=== PATIENT | female | born 1980 | race Caucasian/White ===

== ENCOUNTER → 2017-12-24 | Outpatient (CLI) | payer OTHER | LOC: LAB EV 18:51 → LAB SHORT 18:51 | DX: N39.0 Urinary tract infection, site not specified (principal) | CPT/HCPCS: 87086 ==

== ENCOUNTER → 2018-01-27 | Outpatient (CLI) | payer OTHER | END | disposition home or self-care (01) | LOC: LAB SHORT 18:37 → LAB EV 18:37 | DX: N39.0 Urinary tract infection, site not specified (principal) | CPT/HCPCS: 87086 ==

== ENCOUNTER → 2018-06-17 | Outpatient (CLI) | payer OTHER | END | disposition home or self-care (01) | LOC: LAB EV 08:37 → LAB SHORT 08:37 | DX: N39.0 Urinary tract infection, site not specified (principal) | CPT/HCPCS: 87086 ==

== ENCOUNTER → 2018-07-21 | Outpatient (CLI) | payer OTHER | END | disposition home or self-care (01) | LOC: LAB EV 17:53 → LAB SHORT 17:53 | DX: N39.0 Urinary tract infection, site not specified (principal) | CPT/HCPCS: 87077; 87086; 87186 ==

== ENCOUNTER → 2018-10-13 | Outpatient (CLI) | payer OTHER | END | disposition home or self-care (01) | LOC: LAB SHORT 17:55 → LAB EV 17:55 | DX: N39.0 Urinary tract infection, site not specified (principal) | CPT/HCPCS: 87077; 87086; 87186 ==

== ENCOUNTER → 2018-11-05 | Outpatient (CLI) | payer OTHER | END | disposition home or self-care (01) | LOC: LAB SHORT 09:32 → LAB EV 09:32 | DX: N39.0 Urinary tract infection, site not specified (principal) | CPT/HCPCS: 87086 ==

== ENCOUNTER → 2018-12-04 | Outpatient (CLI) | payer OTHER ==
[2018-12-08 15:07] LABS: HPV 16 Negative (Negative); HPV 18 Positive (Negative); HPV OTHER HR TYPES Positive (Negative)
== END | disposition home or self-care (01) ==
LOC: LAB SHORT 07:40 → LAB 07:40
PROVIDERS: Family Medicine
DX: Z12.4 Encounter for screening for malignant neoplasm of cervix (principal); R30.0 Dysuria
CPT/HCPCS: 87077; 87086; 87186; 87624; 87625; G0123

== ENCOUNTER → 2019-01-16 | Outpatient (CLI) | payer OTHER ==
[2019-01-17 10:19] LABS: Candida species (DNA Probe) Positive (NEGATIVE); G. vaginalis (DNA Probe) Negative (NEGATIVE); T. vaginalis (DNA Probe) Negative (NEGATIVE)
== END | disposition home or self-care (01) ==
LOC: LAB SHORT 11:30 → LAB UCHC 11:30
PROVIDERS: Internal Medicine
DX: N76.0 Acute vaginitis (principal)
CPT/HCPCS: 87480; 87510; 87660

== ENCOUNTER → 2019-01-26 | Outpatient (CLI) | payer OTHER | END | disposition home or self-care (01) | LOC: LAB SHORT 18:41 → LAB EV 18:41 | DX: N39.0 Urinary tract infection, site not specified (principal) | CPT/HCPCS: 87077; 87086; 87186 ==

== ENCOUNTER → 2019-07-10 | Outpatient (CLI) | payer OTHER | END | disposition home or self-care (01) | LOC: LAB 18:18 → LAB SHORT 18:18 | DX: N39.0 Urinary tract infection, site not specified (principal) | CPT/HCPCS: 87077; 87086; 87186 ==

== ENCOUNTER → 2019-08-06 | Outpatient (CLI) | payer OTHER ==
[2019-08-07 11:48] LABS: Candida species (DNA Probe) Positive (NEGATIVE); G. vaginalis (DNA Probe) Negative (NEGATIVE); T. vaginalis (DNA Probe) Negative (NEGATIVE)
== END | disposition home or self-care (01) ==
LOC: LAB SHORT 09:00 → LAB 09:00
PROVIDERS: Internal Medicine
DX: N89.8 Other specified noninflammatory disorders of vagina (principal)
CPT/HCPCS: 87480; 87510; 87660

== ENCOUNTER → 2019-11-20 | Outpatient (CLI) | payer OTHER | END | disposition home or self-care (01) | LOC: LAB 14:37 → LAB SHORT 14:37 | DX: N39.0 Urinary tract infection, site not specified (principal) | CPT/HCPCS: 87086 ==

== ENCOUNTER → 2020-06-23 | Outpatient (CLI) | payer OTHER ==
[2020-06-24 09:30] LABS: Candida species (DNA Probe) Positive (NEGATIVE); G. vaginalis (DNA Probe) Positive (NEGATIVE); T. vaginalis (DNA Probe) Negative (NEGATIVE)
[2020-06-25 04:08] LABS: CHLAMYDIA TRACHOMATIS, NAA Negative (Negative); HPV 16 Negative (Negative); HPV 18 Negative (Negative); HPV OTHER HR TYPES Positive (Negative)
== END | disposition home or self-care (01) ==
LOC: LAB SHORT 10:45 → LAB 10:45
PROVIDERS: Internal Medicine
DX: Z01.419 Encounter for gynecological examination (general) (routine) without abnormal findings (principal); N89.8 Other specified noninflammatory disorders of vagina
CPT/HCPCS: 87480; 87491; 87510; 87591; 87624; 87660; G0123

== ENCOUNTER → 2020-08-16 | Outpatient (CLI) | payer BC | END | disposition home or self-care (01) | LOC: LAB 15:04 → LAB SHORT 15:04 | DX: N87.9 Dysplasia of cervix uteri, unspecified (principal) | CPT/HCPCS: 88305 ==

== ENCOUNTER → 2021-01-16 | Outpatient (CLI) | payer BC ==
[2021-01-17 10:16] LABS: Candida species (DNA Probe) Negative (NEGATIVE); G. vaginalis (DNA Probe) Positive (NEGATIVE); T. vaginalis (DNA Probe) Positive (NEGATIVE)
[2021-01-18 04:09] LABS: CHLAMYDIA TRACHOMATIS, NAA Negative (Negative)
== END | disposition home or self-care (01) ==
LOC: LAB 14:29 → LAB SHORT 14:29
PROVIDERS: Internal Medicine; Nurse Practitioner Family
DX: N89.8 Other specified noninflammatory disorders of vagina (principal)
CPT/HCPCS: 87480; 87491; 87510; 87591; 87660

== ENCOUNTER 2021-03-02 21:12 | Emergency (ER) | payer SELFPAY ==
[~2021-03-02] VITALS: Ht 162.6 cm; Wt 72.6 kg
== END 2021-03-02 21:51 | disposition left against medical advice (07) ==
LOC: ER 21:12
DX: R20.0 Anesthesia of skin (principal); Z53.21 Procedure and treatment not carried out due to patient leaving prior to being seen by health care provider
CPT/HCPCS: 99281

== ENCOUNTER → 2021-05-01 | Outpatient (CLI) | payer SELFPAY | END | disposition home or self-care (01) | LOC: LAB SHORT 18:17 | DX: N39.0 Urinary tract infection, site not specified (principal) | CPT/HCPCS: 87077; 87086; 87186 ==

== ENCOUNTER → 2021-05-04 | Outpatient (CLI) | payer SELFPAY | END | disposition home or self-care (01) | LOC: LAB SHORT 18:57 | DX: J02.9 Acute pharyngitis, unspecified (principal) | CPT/HCPCS: 87081 ==

== ENCOUNTER 2022-07-05 05:46 | Day surgery (SDC) | payer OTHER ==
[2022-07-04 08:25] LABS: Anion Gap 2 mmol/L (6-16); Beta HCG, Quantitative, Serum <1 mIU/mL (0-3); Blood Urea Nitrogen 12 mg/dL (8-24); CO2, Blood 27 mmol/L (21-32); Calcium, Blood 8.6 mg/dL (8.5-10.1); Chloride, Blood 110 mmol/L (98-108); Creatinine, Blood 0.86 mg/dL (0.40-1.00); Glomerular Filtration Rate 86 (60-); Glucose, Blood 107 mg/dL (70-99); Potassium, Blood 3.9 mmol/L (3.5-5.5); Sodium, Blood 139 mmol/L (136-145)
[2022-07-04 09:32] LABS: BASOPHILS ABSOLUTE AUTO 0.04 K/mm3 (0.00-0.23); BASOPHILS PERCENT AUTO 0 % (0-2); EOSINOPHILS ABSOLUTE AUTO 0.28 K/mm3 (0.00-0.68); EOSINOPHILS PERCENT AUTO 3 % (0-6); Hematocrit 39.7 % (33.0-51.0); Hemoglobin 13.7 g/dL (11.5-16.0); IMMATURE GRAN ABSOLUTE AUTO 0.03 K/mm3 (0.00-0.10); IMMATURE GRAN PERCENT AUTO 0 % (0-1); LYMPHOCYTES ABSOLUTE AUTO 3.03 K/mm3 (0.84-5.20); LYMPHOCYTES PERCENT AUTO 33 % (21-46); MONOCYTES ABSOLUTE AUTO 0.88 K/mm3 (0.16-1.47); MONOCYTES PERCENT AUTO 10 % (4-13); Mean Corpuscular HGB 28.9 pg (26.0-34.0); Mean Corpuscular HGB Conc 34.5 g/dL (31.5-36.5); Mean Corpuscular Volume 84 fL (80-100); Mean Platelet Volume 10.2 fL (9.1-12.4); NEUTROPHILS ABSOLUTE AUTO 4.84 K/mm3 (1.96-9.15); NEUTROPHILS PERCENT AUTO 53 % (41-73); Platelet Count 287 K/mm3 (150-400); RDW Coefficient Variation 13.1 % (11.7-14.2); Red Blood Cell Count 4.74 M/mm3 (3.80-5.20)
[~2022-07-05] VITALS: Ht 162.6 cm; Wt 90.4 kg
[2022-07-05] VITALS (16 sets, daily range): BP systolic 107–130; BP diastolic 68–98
[~2022-07-05 05:46] MED LIST: Budeprion Xl300 MG PO; Buspirone HCl15 MG PO; CITALOPRAM HBR20 M9 PO; LOSA25 PO; MELATONIN5 M1 PO; VITAMIN D5000 UNIT PO
--- NOTE | 2022-07-05 07:25 | NUR ---
Patient up to Ambulate independently. Gait steady. Surgical site prepped with 2% Chlorhexidine cloth wipe. History, Chart, Medications and Allergies reviewed before start of procedure. Lungs clear T/O to Auscultation. Patient confirms NPO status and agrees with scheduled surgery. Pre-Op teaching done. Pt verbalizes understanding. DENTURES REMOVED AND PLACED UNDER BED WITH PATIENTS BELONGINGS, GLASSES REMOVED AND PLACED IN PACU.
--- NOTE | 2022-07-05 17:36 | NUR ---
PT POST OP DAY 0 FROM LAP HYSTER. LAP INCISION SITES X4- INFLAMMATION PRESENT, NO EXUDATE. URINARY GUILLEN REMOVED. PT HAS ADEQUATE APPETITE AND FLUID INTAKE. FAMILY AT BEDSIDE THROUGHOUT THE DAY.
--- NOTE | 2022-07-05 20:09 | NUR ---
SHIFT SUMMARY POD0 LAVH, A/OX4, VSS, TOLERATING PO, ABLE TO AMBULATE WITH MINIMAL SBA, ABLE TO VOID AFTER GUILLEN WAS REMOVED, REPORTING PAIN MANAGED PER EMAR, FAMILY AT BEDSIDE T/O THE SHIFT. NO ACUTE EVENTS THIS SHIFT, CALL LIGHT IN REACH, REPORT GIVEN TO NOC RN.
--- NOTE | 2022-07-05 21:23 | NUR ---
HOME MEDS PT REFUSING TO TAKE SCHEDULED MEDICATION OFFERED BY THE HOSPITAL D/T HAVING HOME MEDS WITH HER. PT EDUCATED ABOUT THE RISKS OF TAKING OWN MEDICATION. PT AGREED TO DISCUSS WHAT MEDICATION SHE IS AND ISNT TAKING. WONDERLY AWARE OF SITUAION AND OKAYED PT TO TAKE OWN MEDICATION PER DAY SHIFT NURSE.
[2022-07-06 00:18] VITALS: BP 112/73
[2022-07-06 04:04] VITALS: BP 123/82
--- NOTE | 2022-07-06 04:40 | NUR ---
SHIFT SUMMARY POD1 LAP HYSTER. X4 LAP SITES ARE C/D/I. MINIMAL BLEEDING NOTED T/O THE NIGHT. VSS. PT MEDICATED FOR PAIN WITH PRN'S. PT TOLLERATING PO INTAKE W/O N/V. VOIDING W/O DIFFICULTY, NO FLATTUS NOTED. SEE PREVIOUS NOTE FOR MED MANAGEMENT. PLAN FOR PT TO D/C HOME TODAY. THE PATIENT IS CURRENTLY RESTING, IN NO DISTRESS, CALL LIGHT IN REACH
[2022-07-06 05:10] LABS: BASOPHILS ABSOLUTE AUTO 0.01 K/mm3 (0.00-0.23); BASOPHILS PERCENT AUTO 0 % (0-2); EOSINOPHILS PERCENT AUTO 0 % (0-6); Hematocrit 35.2 % (33.0-51.0); IMMATURE GRAN ABSOLUTE AUTO 0.05 K/mm3 (0.00-0.10); IMMATURE GRAN PERCENT AUTO 0 % (0-1); LYMPHOCYTES ABSOLUTE AUTO 1.48 K/mm3 (0.84-5.20); LYMPHOCYTES PERCENT AUTO 11 % (21-46); MONOCYTES ABSOLUTE AUTO 1.08 K/mm3 (0.16-1.47); MONOCYTES PERCENT AUTO 8 % (4-13); Mean Corpuscular HGB 29.1 pg (26.0-34.0); Mean Corpuscular HGB Conc 34.1 g/dL (31.5-36.5); Mean Corpuscular Volume 85 fL (80-100); Mean Platelet Volume 10.1 fL (9.1-12.4); NEUTROPHILS ABSOLUTE AUTO 11.37 K/mm3 (1.96-9.15); NEUTROPHILS PERCENT AUTO 81 % (41-73); Platelet Count 258 K/mm3 (150-400); RDW Standard Deviation 39.8 fL (35.1-46.3); Red Blood Cell Count 4.13 M/mm3 (3.80-5.20); White Blood Cell Count 13.99 K/mm3 (4.00-11.30)
[2022-07-06 07:25] VITALS: BP 122/82
--- NOTE | 2022-07-06 09:12 | NUR ---
WONDERLY AT BEDSIDE WITH PATIENT
[2022-07-06] MEDS ORDERED: IBUP400 PO (10:26)
[2022-07-06] MEDS ORDERED: PROM25 PO (10:27)
[2022-07-06] MEDS ORDERED: Percocet 5-3251 EACH PO (10:27)
[2022-07-06] MEDS ORDERED: SIME80CH PO (10:29)
--- NOTE | 2022-07-06 17:55 | NUR ---
DISCHARGE SUMMARY POD1 LAVH, A/OX4, VSS, TOLERATING PO, AMBULATING INDEPENDENTLY, VOIDING WELL, PAIN WELL MANAGED. DISCUSSED DISCHARGE INFORMATION WITH THE PATIENT INCLUDING HOME CARE, MEDICATIONS, FOLLOW UP APPOINTMENTS, AND S/SX TO LOOK OUT FOR WITH CONTACT INFORMATION IF SHE HAS ANY QUESTIONS. NO QUESTIONS AT TIME OF DISCHARGE. IV ACCESS REMOVED BEFORE DEPARTURE. PT ESCORTED TO ENTRANCE VIA WC TO PRIVATE AUTO TO GO HOME WITH FAMILY MEMBER.
== END 2022-07-06 11:30 | disposition home or self-care (01) ==
LOC: ORSCMMR 05:46 → ORD 07:30 → ORSCMMR 07:30 → SURS 12:05 → ORSCMMR 07-06 11:30
PROVIDERS: Obstetrics & Gynecology
PROC: 0UT7FZZ Resection of Bilateral Fallopian Tubes, Via Natural or Artificial Opening With Percutaneous Endoscopic Assistance (ICD-10-PCS; principal; 2022-07-05 07:30)
PROC: 0U5F4ZZ Destruction of Cul-de-sac, Percutaneous Endoscopic Approach (ICD-10-PCS; principal; 2022-07-05 07:30)
PROC: 0UT9FZZ Resection of Uterus, Via Natural or Artificial Opening With Percutaneous Endoscopic Assistance (ICD-10-PCS; principal; 2022-07-05 07:30)
PROC: 8E0W4CZ Robotic Assisted Procedure of Trunk Region, Percutaneous Endoscopic Approach (ICD-10-PCS; principal; 2022-07-05 07:30)
DX: N92.0 Excessive and frequent menstruation with regular cycle (principal); D25.9 Leiomyoma of uterus, unspecified; N80.9 Endometriosis, unspecified; N94.6 Dysmenorrhea, unspecified; N94.10 Unspecified dyspareunia; R10.2 Pelvic and perineal pain; N80.03 Adenomyosis of the uterus; I10 Essential (primary) hypertension; F41.8 Other specified anxiety disorders; F43.10 Post-traumatic stress disorder, unspecified; Z79.899 Other long term (current) drug therapy; E66.9 Obesity, unspecified; Z68.34 Body mass index [BMI] 34.0-34.9, adult
CPT/HCPCS: 58571; 58662; S2900; 36415; 80048; 84702; 85025; 86850; 86900; 86901; 88305; 88307; A9270; J0690; J1100; J1885; J2250; J2405; J2704; J3010; J7120

== ENCOUNTER → 2024-11-09 | Outpatient (CLI) | payer BC ==
[~2024-11-09] MED LIST changes: +IBUP400 PO; +PROM25 PO; +Percocet 5-3251 EACH PO; +SIME80CH PO
== END ==
LOC: LAB SHORT 17:30 → LAB 17:30
DX: N39.0 Urinary tract infection, site not specified (principal)
CPT/HCPCS: 87077; 87086; 87186

== ENCOUNTER → 2024-11-18 | Outpatient (CLI) | payer BC | LOC: LAB SHORT 14:46 → LAB 14:46 | DX: N95.1 Menopausal and female climacteric states (principal) | CPT/HCPCS: 83001 ==

== ENCOUNTER → 2024-11-30 | Outpatient (CLI) | payer BC | LOC: LAB SHORT 17:23 → LAB 17:23 | DX: R30.0 Dysuria (principal) | CPT/HCPCS: 87077; 87086; 87186 ==

== ENCOUNTER → 2024-12-22 | Outpatient (CLI) | payer BC ==
[2024-12-22 17:01] LABS: Bacterial Vaginosis PCR Negative (NEGATIVE); Candida glabrata-krusei, PCR NOT DETECTED (NOT DETECT)
[2024-12-22 17:06] LABS: Candida Group, PCR DETECTED (NOT DETECT)
== END | disposition home or self-care (01) ==
LOC: LAB SHORT 11:45 → LAB 11:45
PROVIDERS: Internal Medicine
DX: N94.9 Unspecified condition associated with female genital organs and menstrual cycle (principal); N30.00 Acute cystitis without hematuria
CPT/HCPCS: 81515; 87086